=== PATIENT | male | born 1985 ===

== ENCOUNTER 2021-01-09 13:23 | Emergency (ER) | payer SELFPAY ==
[2021-01-09 14:56] LABS: Basophils % (Auto) 0.9 % (0.0-1.8); Eosinophils # (Auto) 0.1 K/mm3 (0.0-0.4); Eosinophils % (Auto) 1.8 % (0.0-4.3); Hematocrit 31.4 % (35.5-45.6); Hemoglobin 9.8 gm/dl (11.8-15.2); Lymphocytes # (Auto) 0.5 K/mm3 (1.2-5.4); Lymphocytes % (Auto) 14.3 % (13.4-35.0); Mean Corpuscular HGB Conc 31 % (32-34); Monocytes # (Auto) 0.5 K/mm3 (0.0-0.8); Monocytes % (Auto) 14.7 % (0.0-7.3); Red Blood Count 4.74 M/mm3 (3.65-5.03)
[2021-01-09 14:57] LABS: Mean Corpuscular Volume 66 fl (84-94); Platelet Count 66 K/mm3 (140-440); Red Cell Distribution Width 20.7 % (13.2-15.2)
[2021-01-09 15:12] LABS: Alanine Aminotransferase 36 units/L (7-56); Albumin 3.5 g/dL (3.9-5); Blood Urea Nitrogen 2 mg/dL (9-20); Calcium 8.6 mg/dL (8.4-10.2); Hemolysis Index 11
[2021-01-09 15:15] LABS: BUN/Creatinine Ratio 4
--- NOTE | 2021-01-09 15:33 | Event Note ---
ED Screening Note Date of service: 01/09/21 Time: 15:31 ED Screening Note: Patient presents with sudden onset of abdominal pain, vomiting, and diarrhea today Patient has history of alcohol abuse, however states he does not drink regularly anymore. He states his last alcoholic beverage was last night He admits to hematemesis Patient admitted 09/18 with similar symptoms Patient appears very uncomfortable This initial assessment/diagnostic orders/clinical plan/treatment(s) is/are subject to change based on patients health status, clinical progression and re- assessment by fellow clinical providers in the ED. Further treatment and workup at subsequent clinical providers discretion. Patient/guardian urged not to elope from the ED as their condition may be serious if not clinically assessed and managed. Initial orders include: Labs CT abdomen
[2021-01-09] MEDS ORDERED: ONDANSETRON 4 MG/2 ML INJ IV ONE (15:48)
[2021-01-09] MEDS ORDERED: MORPHINE 4 MG/1 ML INJ IV ONE (15:48)
[2021-01-09] MEDS ORDERED: SODIUM CHLORIDE 0.9% 1000 ML 1,000 ML IV ONE (16:15)
--- NOTE | 2021-01-09 17:01 | Cat Scan Report ---
CT abdomen pelvis w con INDICATION: mid abdominal pain, elevated alk phos, hematemesis. COMPARISON: 09/22/2020 TECHNIQUE: Abdominal and pelvic CT exam performed. All CT scans at this location are performed using CT dose reduction for ALARA by means of automated exposure control. FINDINGS: CT ABDOMEN and PELVIS: Lung Bases: No significant abnormality. Liver: Hepatic steatosis. Slightly nodular contour of the liver. Biliary: No significant abnormality. Spleen: Spleen is enlarged. Pancreas: No significant abnormality. Adrenals: No significant abnormality. Kidneys: No significant abnormality. Lymphatics: No lymphadenopathy. Vasculature: No significant abnormality. Bowel: No significant abnormality. Pelvis: No significant abnormality. Osseous Structures: No aggressive osseous lesion. Additional Findings: Unchanged mild mesenteric stranding. IMPRESSION: 1. No acute abnormality of the abdomen or pelvis. No significant interval change. 2. Diffuse hepatic steatosis. There is slightly nodular contour of liver suggesting underlying cirrho sis. Splenomegaly is nonspecific but could be related to sequela of portal venous hypertension. Signer Name: Celestine Stanley MD Signed: 01/09/2021 4:56 PM Workstation Name: [id number]
[2021-01-09 17:28] LABS: Bilirubin,Urine NEG (Negative); Blood,Urine SM (Negative); Color,Urine Amber (Yellow); Mucus,Urine 3+ /HPF
--- NOTE | 2021-01-09 17:32 | Emergency Department Report ---
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 Patient states that he previously used to be a heavy drinker but has not decreased his drinking. He states he then decided to drink again 2 days ago. He reports he drank an entire bottle of Bull Anant tequila over the last 2 days. He states he has had nausea, vomiting, diarrhea. Reports he seen bright red blood in his vomit and has had a couple episodes of melena. He states his abdominal pain radiates to his chest. He denies any fever, shortness of breath, urinary symptoms, pain or swelling in the testicles. He has a past medical history of cirrhosis and has a history of esophageal varices causing bleeding. No allergies to medicines. Severity scale (0 -10): 6 - Related Data Previous Rx's Medication Instructions Recorded Last Taken Type Folic Acid 1 mg PO DAILY #30 tablet 09/25/20 Unknown Rx Thiamine [Vitamin B-1] 100 mg PO QDAY #30 tablet 09/25/20 Unknown Rx propranoloL [Inderal] 10 mg PO BID #60 tablet 09/25/20 Unknown Rx Doxycycline Hyclate [Doxycycline 100 mg PO BID 7 Days #14 tablet 01/09/21 Unknown Rx Hyclate TAB] Multivitamin Tab [Multiple Vitamin 1 each PO QDAY #60 tablet 01/09/21 Unknown Rx TAB (Theragran)] Ondansetron [Zofran Odt] 4 mg PO Q8HR PRN #12 tab.rapdis 01/09/21 Unknown Rx Pantoprazole [Protonix TAB] 40 mg PO QDAY #60 tablet 01/09/21 Unknown Rx Allergies Allergy/AdvReac Type Severity Reaction Status Date / Time No Known Allergies Allergy Verified 01/09/21 13:48 ED Review of Systems ROS: Stated complaint: LIVER Other details as noted in HPI Comment: All other systems reviewed and negative ED Past Medical Hx - Past Medical History Hx Congestive Heart Failure: No Hx Diabetes: No Hx Liver Disease: Yes Hx Asthma: No Hx COPD: No Additional medical history: abd pain, ETOH abuse - Surgical History Additional Surgical History: unknown - Social History Smoking Status: Never Smoker Substance Use Type: Alcohol - Medications Home Medications: Home Medications Medication Instructions Recorded Confirmed Last Taken Type Folic Acid 1 mg PO DAILY #30 tablet 09/25/20 Unknown Rx Thiamine [Vitamin B-1] 100 mg PO QDAY #30 tablet 09/25/20 Unknown Rx propranoloL [Inderal] 10 mg PO BID #60 tablet 09/25/20 Unknown Rx Doxycycline Hyclate [Doxycycline 100 mg PO BID 7 Days #14 tablet 01/09/21 Unknown Rx Hyclate TAB] Multivitamin Tab [Multiple Vitamin 1 each PO QDAY #60 tablet 01/09/21 Unknown Rx TAB (Theragran)] Ondansetron [Zofran Odt] 4 mg PO Q8HR PRN #12 tab.rapdis 01/09/21 Unknown Rx Pantoprazole [Protonix TAB] 40 mg PO QDAY #60 tablet 01/09/21 Unknown Rx ED Physical Exam - General Limitations: Language Barrier General appearance: alert, in no apparent distress - Eye Eye exam: Present: normal appearance - ENT ENT exam: Present: mucous membranes moist - Respiratory Respiratory exam: Present: normal lung sounds bilaterally. Absent: respiratory distress, wheezes, rales, rhonchi, stridor, chest wall tenderness, accessory muscle use, decreased breath sounds, prolonged expiratory - Cardiovascular Cardiovascular Exam: Present: regular rate, normal rhythm, normal heart sounds. Absent: systolic murmur, diastolic murmur, rubs, gallop - GI/Abdominal GI/Abdominal exam: Present: soft, tenderness (generalized), normal bowel sounds. Absent: distended, guarding, rebound, rigid - Rectal Rectal exam: Present: other (rectal exam chaperoned by ORLANDO Griffith, no obvious external or internal hemorroids, small amount of light brown stool, no gross blood, no melena, hemoccult performed and is negative ) - Neurological Exam Neurological exam: Present: alert, oriented X3 - Psychiatric Psychiatric exam: Present: normal affect, normal mood - Skin Skin exam: Present: warm, dry, intact ED Course Vital Signs 01/09/21 01/09/21 13:54 19:12 Temperature 99.1 F 98.9 F Pulse Rate 110 H 119 H Respiratory 20 16 Rate Blood Pressure 148/96 Blood Pressure 144/96 [Left] O2 Sat by Pulse 96 98 Oximetry - Consultations Consultation #1: 01/09/21 17:[address] Anthony, GI doctor regarding patient presentation and results, he advised that patient can follow-up outpatient and advised to give patient prescription for Protonix and multivitamin ED Medical Decision Making - Lab Data Result diagrams: 01/09/21 14:03 01/09/21 14:03 - EKG Data EKG shows normal: sinus rhythm Rate: normal - EKG Data 01/09/21 18:08 LAD RBBB non specific T wave inversion in V1-3 - Radiology Data Radiology results: report reviewed Ordering Physician: ERIS MELGOZA Date of Service: 01/09/21 Procedure(s): CT abdomen pelvis w con Accession Number(s): [id number] cc: ERIS MELGOZA CT abdomen pelvis w con INDICATION: mid abdominal pain, elevated alk phos, hematemesis. COMPARISON: 09/22/2020 TECHNIQUE: Abdominal and pelvic CT exam performed. All CT scans at this location are performed using CT dose reduction for ALARA by means of automated exposure control. FINDINGS: CT ABDOMEN and PELVIS: Lung Bases: No significant abnormality. Liver: Hepatic steatosis. Slightly nodular contour of the liver. Biliary: No significant abnormality. Spleen: Spleen is enlarged. Pancreas: No significant abnormality. Adrenals: No significant abnormality. Kidneys: No significant abnormality. Lymphatics: No lymphadenopathy. Vasculature: No significant abnormality. Bowel: No significant abnormality. Pelvis: No significant abnormality. Osseous Structures: No aggressive osseous lesion. Additional Findings: Unchanged mild mesenteric stranding. IMPRESSION: 1. No acute abnormality of the abdomen or pelvis. No significant interval change. 2. Diffuse hepatic steatosis. There is slightly nodular contour of liver suggesting underlying cirrhosis. Splenomegaly is nonspecific but could be related to sequela of portal venous hypertension. Signer Name: Celestine Stanley MD Signed: 01/09/2021 4:56 PM Workstation Name: [id number] Transcribed By: CS Dictated By: Celestine Stanley MD Electronically Authenticated By: Celestine Stanley MD Signed Date/Time: 01/09/211655 DD/ 52 TD/TT: - Medical Decision Making Oly, legal administrative secretary used for Mosotho interpretation as this is her [place] language Patient is a 35-year-old male presents emergency room complaints of generalized abdominal pain that began 2 days ago. Patient states that he previously used to be a heavy drinker but has not decreased his drinking. He states he then decided to drink again 2 days ago. He reports he drank an entire bottle of Braulio galicia over the last 2 days. He states he has had nausea, vomiting, diarrhea. Reports he seen bright red blood in his vomit and has had a couple episodes of melena. He states his abdominal pain radiates to his chest. He denies any fever, shortness of breath, urinary symptoms, pain or swelling in the testicles. He has a past medical history of cirrhosis and has a history of esophageal varices causing bleeding. No allergies to medicines. Triage vitals with tachycardia, on EKG patient has a normal heart rate and rhythm. On auscultation patient is not tachycardic. On exam patient has generalized abdominal tenderness palpation, no guarding, no rebound, no rigidity, normal bowel sounds, no peritoneal signs. Rectal examination chaperoned by nurse and shows small amount of light brown stool, no melena, no gross blood, no signs of hemorrhoids. I performed Hemoccult and it was negative, the lab inappropriately put positive but I personally developed Hemoccult and it was negative, there was no signs of blood and the Hemoccult card did not change colors. Labs with mild stable anemia which has improved from prior. Labs also with elevated AST and alk phos, otherwise stable. Symptoms likely increased by patient's recent alcohol use. His lipase is normal. CT abdomen pelvis with IV contrast: 1. No acute abnormality of the abdomen or pelvis. No significant interval change. 2. Diffuse hepatic steatosis. There is slightly nodular contour of liver suggesting underlying cirrhosis. Splenomegaly is nonspecific but could be related to sequela of portal venous hypertension. Discussed case with Dr. Anthony, GI doctor regarding patient presentation and results, he advised that patient can follow-up outpatient and advised to give patient prescription for Protonix and multivitamin. UA shows evidence of white blood cells and leukocyte esterase, given 1 g ceftriaxone IV while in the emergency department, given prescription for doxycycline. Patient given IV Zofran, morphine, IV fluids and symptoms improved and patient was sleeping upon reexamination. Patient had no episodes of vomiting while in the emergency department, he has had no episodes of hematemesis, he has had no episodes of melena, he is able to tolerate p.o. intake. Discussed all results with patient answer questions. Discussed the importance of GI follow-up. Discussed very strict return precautions in detail with patient. Advised patient Please take medication as prescribed. Increase your fluid intake. Eat a bland liquid diet and slowly advance your diet as tolerated. Follow-up with your primary care doctor. Follow-up with a GI doctor. Please avoid alcohol use. Please avoid Tylenol use. Return to emergency room immediately for any new or worsening symptoms. Critical care attestation.: If time is entered above; I have spent that time in minutes in the direct care of this critically ill patient, excluding procedure time. ED Disposition Clinical Impression: ETOH abuse, Microcytic anemia, Nausea vomiting and diarrhea, Splenomegaly Abdominal pain Qualifiers: Abdominal location: generalized Qualified Code(s): R10.84 - Generalized ab dominal pain Cirrhosis Qualifiers: Hepatic cirrhosis type: alcoholic cirrhosis Ascites presence: without ascites Qualified Code(s): K70.30 - Alcoholic cirrhosis of liver without ascites UTI (urinary tract infection) Qualifiers: Urinary tract infection type: site unspecified Hematuria presence: without hematuria Qualified Code(s): N39.0 - Urinary tract infection, site not specified Disposition: 01 HOME / SELF CARE / HOMELESS Is pt being admited?: No Does the pt Need Aspirin: No Condition: Stable Additional Instructions: Please take medication as prescribed. Increase your fluid intake. Eat a bland liquid diet and slowly advance your diet as tolerated. Follow-up with your primary care doctor. Follow-up with a GI doctor. Please avoid alcohol use. Please avoid Tylenol use. Return to emergency room immediately for any new or worsening symptoms. [place] la medicacin segn lo prescrito. Aumente dickinson ingesta de lquidos. Consuma naldo dieta lquida blanda y avance lentamente en dickinson dieta segn la tolerancia. Ruperto un seguimiento con dickinson mdico de atencin primaria. Seguimiento con un mdico gastrointestinal. Evite el consumo de alcohol. Evite el uso de Tylenol. Regrese a la cedrick de emergencias de inmediato ante cualquier sntoma nuevo o que empeore. Prescriptions: Doxycycline Hyclate [Doxycycline Hyclate TAB] 100 mg PO BID 7 Days #14 tablet Multivitamin Tab [Multiple Vitamin TAB (Theragran)] 1 each PO QDAY #60 tablet Pantoprazole [Protonix TAB] 40 mg PO QDAY #60 tablet Ondansetron [Zofran Odt] 4 mg PO Q8HR PRN #12 tab.rapdis PRN Reason: nausea/vomiting Referrals: ANDREA TRUJILLO MD [Staff Physician] - 2-3 Days [facility] [Provider Group] - 2-3 Days Time of Disposition: 18:13 Print Language: GERMAN
[2021-01-09] MEDS ORDERED: PANTOPRAZOLE 40 MG INJ IV ONE (17:37)
[2021-01-09 17:52] LABS: INR 1.41 (0.87-1.13)
[2021-01-09 17:53] LABS: Partial Thromboplastin Time 46.2 Sec. (24.2-36.6)
[2021-01-09] MEDS ORDERED: cefTRIAXone/NS 1 GM/50 ML 1 GM/50 ML BAG IV ONE (18:00)
[2021-01-09 19:14] VITALS: BP 144/96
--- NOTE | 2021-01-10 09:22 | Electrocardiograph Report ---
[facility] Test Date: 2021-01-09 Test Time: 17:19:39 Pat Name: PETE FRASER Department: Room: Gender: M Loan Review Analyst: : 1985 Requested By: ALONDRA MARK Order Number: [id number] Reading MD: Eligio Casarez Measurements Intervals [place] Rate: 92 P: -6 GA: 163 QRS: -15 QRSD: 126 T: 57 QT: 401 QTc: 497 Interpretive Statements Sinus rhythm Right bundle branch block nonspecific st-t Compared to ECG 09/22/2020 18:00:03 Sinus tachycardia no longer present Electronically Signed On 01-10-2021 9:21:47 EDT by Eligio Casarez
== END 2021-01-10 01:31 | disposition home or self-care (01) ==
LOC: ED 13:23
DX: K70.30 Alcoholic cirrhosis of liver without ascites (principal); N39.0 Urinary tract infection, site not specified; D50.9 Iron deficiency anemia, unspecified; F10.10 Alcohol abuse, uncomplicated; R10.84 Generalized abdominal pain; R11.2 Nausea with vomiting, unspecified; R19.7 Diarrhea, unspecified; R16.1 Splenomegaly, not elsewhere classified; Z79.899 Other long term (current) drug therapy
CPT/HCPCS: 36415; 74177; 80053; 81001; 82140; 82271; 83690; 84484; 85025; 85610; 85730; 87086; 93005; 96361; 96374; 96375; 99284; J2270; J2405; J7030; Q9967